=== PATIENT | female | born 1945 | race Caucasian/White ===

== ENCOUNTER 2017-06-17 09:58 | Inpatient (IN) | payer OTHER ==
[~2017-06-17] VITALS: Ht 165.1 cm; Wt 54.0 kg
[2017-06-17] MEDS ORDERED: ATOR10TA88 PO (10:11)
[2017-06-17] MEDS ORDERED: SODIUM CHLORIDE 0.9% 1000ML 1,000 ML IV ONE (10:25)
[2017-06-17] MEDS ORDERED: SODIUM CHLORIDE 0.9% 1000ML 1,000 ML IV STA (10:25)
--- NOTE | 2017-06-17 10:35 | EMERGENCY ROOM VISIT NOTE ---
History Report prepared by Sakshi: Ranjit Ho Under the Supervision of: Dr. Bertin Sears M.D. First contact with patient: 10:15 Chief Complaint: REFERRED BY DOCTOR Stated Complaint: ABNORMAL LABS History of Present Illness The patient is a 72 year old female who presents to the Emergency Room with a referral from her doctor at [facility] due to low sodium and potassium. Patient has a history of hyperlipidemia and alcohol use. She has been struggling with alcohol consumption for the past 6 months. She is being treated at [facility] for her alcohol abuse. She states she has not drank any alcohol for the past 2 weeks and that she is doing well. Patient is experiencing fatigue with intermittent shaking. She denies any nausea or vomiting. She notes that she has been keeping up with her fluids. She denies any recent steroid use and any other substance use. She denies any history of adrenal gland problems or withdrawing from alcohol in the past. Source of History: patient, transfer records Onset: Recently Position: other (Global) Symptom Intensity: low lab value Quality: other (low potassium and sodium) Timing: constant Associated Symptoms: + fatigue, No nausea, No vomiting Note: She is experiencing shakiness. Review of Systems See HPI for pertinent positives & negatives. A total of 10 systems reviewed and were otherwise negative. Past Medical & Surgical Medical Problems: (1) Hypokalemia (2) Hyponatremia Social History Problems: (1) Alcohol abuse Old medical records were reviewed. Nurse's notes were reviewed and I agree with. Family History Omitted secondary to the patient's age. Social History Smoking Status: Current Every Day Smoker Alcohol Use: other (alcoholic history) Drug Use: none Housing Status: other (rehab center) Occupation Status: retired Current/Historical Medications Scheduled Atorvastatin (Lipitor), 10 MG PO QAM Allergies Coded Allergies: No Known Allergies (Unverified , 06/17/17) Physical Exam Vital Signs Date Time Temp Pulse Resp B/P (MAP) Pulse Ox O2 Delivery O2 Flow Rate FiO2 06/17/17 11:00 79 18 170/91 97 Room Air 06/17/17 10:42 81 20 162/103 94 Room Air 06/17/17 10:26 96 Room Air 06/17/17 10:05 85 06/17/17 10:04 36.7 81 18 153/70 97 Room Air Physical Exam General: Non-ill appearing middle aged female in no acute distress. HEENT: Normal cephalic atraumatic. Pupils are equal round and reactive to light. Sclerae are anicteric. Extraocular movements are intact. Oropharynx is pink with moist mucous membranes. No swelling of the mouth lips or tongue. Neck: Supple with a midline trachea. No meningeal signs or stiffness, no JVD or bruits. No Stridor. Chest: Clear to auscultation bilaterally. No wheezes or rhonchi. No increased work of breathing. Heart: regular rate and rhythm. Abdomen: Soft nontender, nondistended without rebound guarding or rigidity. Extremities: No cyanosis clubbing or edema. No calf tenderness or assymetry Spine/Back. Non tender to palpation. No CVA tenderness Skin: Good turgor without rashes. Neurologic exam: Alert and oriented to person, place, and partial date. Cranial nerves two through 12 are intact. Motor and sensation are intact and symmetrical throughout. No tremor. Medical Decision & Procedures Laboratory Results 06/17/17 09:40 Red Blood Count 4.43, Mean Corpuscular Volume 83.1, Mean Corpuscular Hemoglobin 30.0, Mean Corpuscular Hemoglobin Concent 36.1, Mean Platelet Volume 9.3, Neutrophils (%) (Auto) 74.1, Lymphocytes (%) (Auto) 13.3, Monocytes (%) (Auto) 10.0, Eosinophils (%) (Auto) 2.1, Basophils (%) (Auto) 0.3, Neutrophils # (Auto ) 4.57, Lymphocytes # (Auto) 0.82, Monocytes # (Auto) 0.62, Eosinophils # (Auto ) 0.13, Basophils # (Auto) 0.02 06/17/17 09:40 Test 06/17/17 09:40 White Blood Count 6.17 K/uL (4.8-10.8) Red Blood Count 4.43 M/uL (4.2-5.4) Hemoglobin 13.3 g/dL (12.0-16.0) Hematocrit 36.8 % (37-47) Mean Corpuscular Volume 83.1 fL (80-100) Mean Corpuscular Hemoglobin 30.0 pg (25-34) Mean Corpuscular Hemoglobin Concent 36.1 g/dl (32-36) Platelet Count 318 K/uL (130-400) Mean Platelet Volume 9.3 fL (7.4-10.4) Neutrophils (%) (Auto) 74.1 % Lymphocytes (%) (Auto) 13.3 % Monocytes (%) (Auto) 10.0 % Eosinophils (%) (Auto) 2.1 % Basophils (%) (Auto) 0.3 % Neutrophils # (Auto) 4.57 K/uL (1.4-6.5) Lymphocytes # (Auto) 0.82 K/uL (1.2-3.4) Monocytes # (Auto) 0.62 K/uL (0.11-0.59) Eosinophils # (Auto) 0.13 K/uL (0-0.5) Basophils # (Auto) 0.02 K/uL (0-0.2) RDW Standard Deviation 38.6 fL (36.4-46.3) RDW Coefficient of Variation 12.7 % (11.5-14.5) Immature Granulocyte % (Auto) 0.2 % Immature Granulocyte # (Auto) 0.01 K/uL (0.00-0.02) Anion Gap 9.0 mmol/L (3-11) Est Creatinine Clear Calc Drug Dose 61.9 ml/min Estimated GFR () 100.1 Estimated GFR (Non- 86.4 BUN/Creatinine Ratio 13.5 (10-20) Calcium Level 8.5 mg/dl (8.5-10.1) Magnesium Level 2.2 mg/dl (1.8-2.4) Total Bilirubin 0.8 mg/dl (0.2-1) Direct Bilirubin 0.2 mg/dl (0-0.2) Aspartate Amino Transf (AST/SGOT) 24 U/L (15-37) Alanine Aminotransferase (ALT/SGPT) 28 U/L (12-78) Alkaline Phosphatase 87 U/L (45-117) Total Protein 6.5 gm/dl (6.4-8.2) Albumin 3.3 gm/dl (3.4-5.0) Lipase 175 U/L (73-393) Thyroid Stimulating Hormone (TSH) 3.170 uIu/ml (0.300-4.500) Laboratory studies as stated above per my review. Medications Administered Medications (Trade) Dose Ordered Sig/Dianelys Route Start Time Stop Time Status Last Admin Dose Admin Sodium Chloride 1,000 ml @ 999 mls/hr Q1H1M STAT IV 06/17/17 10:25 06/17/17 11:25 DC 06/17/17 10:40 999 MLS/HR Sodium Chloride 1,000 ml @ 150 mls/hr Q6H40M ONCE IV 06/17/17 10:25 06/17/17 14:18 DC 06/17/17 10:40 150 MLS/HR ECG Indication: other (abnormal labs) Rate (beats per minute): 77 Rhythm: normal sinus Findings: PAC, no acute ischemic change, other (no prolonged QT) Comparison ECG Date: no prior available ED Course 1015: Past medical records reviewed. The patient was evaluated in room B6, and a complete history and physical examination were performed. 1025: Sodium Chloride 1000 ml @ 150 mls/hr IV, Sodium Chloride 1000 ml @ 999 mls /hr IV. 1216: Upon reevaluation, the patient is resting. I discussed the results and treatment plan with the patient. She verbalized agreement of the treatment plan. The patient will be evaluated by Dr. Les Orourke Hospitalist, for further management. Medical Decision Differentials include, but are not limited to; electrolyte or metabolic abnormality, alcohol withdrawal, toxicologic process, and infection. This patient comes in as described above. She was placed in room B6. She is here for treatment and evaluation of hyponatremia. She is presently a patient at the rehabilitation facility for alcohol. She's been there for over a week. Apparently a day or so ago her sodium is 124 which was apparently down from 131. She denies any complaints. She's had no tremor. She says she has been eating okay. She is in no vomiting. IV access was established and she was hydrated with IV normal saline. Her sodium did come back at 124. Potassium is also mildly low at 0.3 she has nothing to suggest acute coronary syndrome or significant arrhythmia. She has no findings to suggest infection. I do think she needs to be admitted for hibernating hyponatremia further treatment and evaluation. Have consulted Dr. Finley to see her in the emergency department. Medication Reconcilliation Current Medication List: was personally reviewed by me Blood Pressure Screening Patient's blood pressure: Elevated blood pressure Blood pressure disposition: Elevated BP felt to be situational Consults Time Called: 1212 Consulting Physician: Dr. Les Orourke Returned Call: 1216 Discussed the patient's case. The patient will be evaluated for further management. Impression Primary Impression: Hyponatremia Additional Impression: Alcohol abuse Scribe Attestation The scribe's documentation has been prepared under my direction and personally reviewed by me in its entirety. I confirm that the note above accurately reflects all work, treatment, procedures, and medical decision making performed by me. Departure Information Dispostion Being Evaluated By Hospitalist Referrals No Doctor, Assigned (PCP) Patient Instructions My [facility] Problem Qualifiers
[2017-06-17 10:44] LABS: BASO % 0.3 %; BASO ABS # 0.02 K/uL (0-0.2); COMPLETE YES; EOS % 2.1 %; HEMATOCRIT 36.8 % (37-47); IG% 0.2 %; LYMPH % 13.3 %; LYMPH ABS # 0.82 K/uL (1.2-3.4); MEAN CELL VOLUME 83.1 fL (80-100); MEAN CORPUSCULAR HGB CONC 36.1 g/dl (32-36); MEAN PLATELET VOLUME 9.3 fL (7.4-10.4); NEUT % 74.1 %; PLATELET COUNT 318 K/uL (130-400); RED BLOOD COUNT 4.43 M/uL (4.2-5.4); WHITE BLOOD COUNT 6.17 K/uL (4.8-10.8)
[2017-06-17 11:15] LABS: BUN/CREATININE RATIO 13.5 (10-20); CALCIUM 8.5 mg/dl (8.5-10.1); CREATININE 0.69 mg/dl (0.60-1.20); MAGNESIUM 2.2 mg/dl (1.8-2.4); POTASSIUM 3.4 mmol/L (3.5-5.1); THYROID STIMULATING HORMONE 3.17 uIu/ml (0.300-4.500)
[2017-06-17] MEDS ORDERED: POTASSIUM CHLORIDE 10 MEQ TABCR PO STA (12:56)
[2017-06-17 13:00] VITALS: O2SAT 96
[2017-06-17] MEDS ORDERED: ENOXAPARIN 40 MG/0.4 ML SYR SQ SCH (13:00)
[2017-06-17] MEDS ORDERED: ONDANSETRON INJ 2 MG/ML 2 ML VIAL IV PRN (13:00)
[2017-06-17] MEDS ORDERED: THIAMINE HCL 100 MG TAB PO ONE (13:03)
[2017-06-17] MEDS ORDERED: SERTRALINE HCL 50 MG TAB PO ONE (13:03)
[2017-06-17] MEDS ORDERED: ALBUTEROL HFA 8 GM INHALER INH PRN (13:15)
[2017-06-17] MEDS ORDERED: CLONIDINE HCL 0.1 MG TAB PO PRN (13:15)
--- NOTE | 2017-06-17 13:56 | HISTORY & PHYSICAL EXAMINATION ---
DATE OF ADMISSION: 06/17/2017 PRIMARY CARE PHYSICIAN: Dr. Lama at [facility]. CHIEF COMPLAINT: The patient was sent in with increasing weakness and tiredness and also noted to have a sodium of 124. HISTORY OF PRESENT COMPLAINT: She is a 72-year-old female with significant past medical history of COPD with ongoing smoking and alcohol abuse, has been in [facility] for [facility] for the last 2 weeks. She does not have any other prior medical history. Of note, she has been complaining of more weakness and tiredness since she has been in the rehab center. She has had a blood test done yesterday by the caring physician and was noted to have a sodium of 124, potassium of 3.3. From that point, she was advised to come to [facility] for further evaluation. When asking questions besides COPD and ongoing smoking and alcohol abuse she does not have any other medical history. She is not aware of having low sodium before and she denies to have any cough, any chest pain, palpitation, shortness of breath, any confusion or any numbness or tingling in the extremities. She does not have any weakness involving any side. He denies to have any nausea and/or vomiting and no problem with urine and/or bowel habit. PAST MEDICAL HISTORY: Significant for COPD and alcohol abuse and also ongoing smoking. PAST SURGICAL HISTORY: Hysterectomy in 1975. FAMILY HISTORY: Significant that mother had some heart disease and from heart condition. SOCIAL HISTORY: She is . She has 2 children. Presently, she is in rehab center at [place] for alcohol rehabilitation. She continues to smoke about half pack per day. She has not been drinking for more than 2 weeks since she has been in the rehab center and she has been reasonably ambulant. REVIEW OF SYSTEMS: Other systems reviewed, unremarkable except those mentioned in history of present complaint. ALLERGIES: NKDA. MEDICATIONS: She has been on ibuprofen 600 mg q.i.d. as needed, Tylenol 650 mg q.i.d. as needed, Maalox 30 mL as needed, doxepin 50 mg at bedtime, triamcinolone acetonide cream 0.1% as directed, Zofran 4 mg p.o. t.i.d. as needed, folic acid 1 mg daily, vitamin B1 100 mg daily, cetirizine 10 mg p.o. b.i.d., atorvastatin 20 mg at night, multivitamin 1 tablet daily, Advair 250/50 one inhalation 1 puff b.i.d., calcium supplement, Zoloft 50 mg daily, melatonin 5 mg at night, Imodium 4 mg as directed, Phenergan as directed, clonidine 0.1 mg b.i.d. p.r.n. and Vistaril 50 mg p.o. t.i.d. p.r.n. PHYSICAL EXAMINATION: GENERAL: On examination in the Emergency Room, she was not having any acute distress. VITAL SIGNS: Temperature 36.7, pulse was 79, blood pressure 170/91, saturation 97% on room air. HEAD, EYES, EARS, NOSE, AND THROAT: Unremarkable. NECK: Supple. No JVD, no bruit. CHEST: Clear to auscultation bilaterally. HEART: S1, S2 regular. ABDOMEN: Soft, benign, nontender, no organomegaly. Bowel sounds present. EXTREMITIES: Negative for any edema. MUSCULOSKELETAL SYSTEM: Did not show any acute arthritis involving any joint. CENTRAL NERVOUS SYSTEM: She was alert, awake, oriented x3, no focal sensory and/or motor deficit appreciated. LABORATORY DATA: Noted today white count was 6.17, H&H 13.3/36.8, platelets was 1318, sodium 124, potassium 3.4, chloride 87, carbon dioxide 28, BUN 9, creatinine 0.69. LFTs unremarkable. Random glucose 104. TSH 3.10. PT, PTT pending. Chest x-ray pending. EKG was in sinus rhythm, rate of 77 per minute, normal axis and no significant ST-T wave changes. IMPRESSION AND PLAN: 1. Electrolyte imbalance, mostly with hyponatremia. The acuity of this problem is not known. We will send urine osmolarity and urine sodium level. Restrict fluid. Get chest x-ray and give a small amount of normal saline and repeat sodium at 7:00PM tonight and tomorrow morning. The causes could be secondary to alcohol abuse, SIADH and also poor intake. 2. Chronic obstructive pulmonary disease. Seems to be stable at this time. The patient has been smoking. Will advise to quit smoking and smoking cessation. 3. Alcohol abuse now at rehab. Will continue with current medications for alcoholism. 4. Gastrointestinal prophylaxis with Maalox, Mylanta as needed. 5. DVT prophylaxis with Lovenox. 6. CODE STATUS. DISCUSSED WITH THE PATIENT, SHE WILL BE A FULL CODE. In my clinical judgment, the beneficiary meets criteria as per CMS for 2 midnight stay in the hospital. VERO
[2017-06-17] MEDS ORDERED: IV FLUIDS COMPLETED PRN (14:15)
[2017-06-17] MEDS ORDERED: NSS + 20MEQ KCL 1000ML 1,000 ML IV SCH (14:19)
--- NOTE | 2017-06-17 14:40 | DIAGNOSTIC IMAGING REPORT ---
CHEST 2 VIEWS ROUTINE HISTORY: 72 years-old Female COPD . COMPARISON: None available TECHNIQUE: Frontal and lateral views of the chest FINDINGS: Cardiomediastinal and hilar silhouettes are within normal limits. Hazy right perihilar and right upper lobe opacities are noted abutting the minor fissure. There is no pneumothorax or pleural effusion. Lungs are hyperinflated with interstitial opacities of the lung bases suggesting scarring or atelectasis. The bones appear grossly intact. IMPRESSION: 1. Hazy right perihilar and right upper lobe opacities suggest atelectasis or pneumonia. 2. Hyperinflation. The above report was generated using voice recognition software. It may contain grammatical, syntax or spelling errors. Electronically signed by: Germain Catalan M.D. 06/17/2017 2:39 PM Dictated Date/Time: 06/17/2017 2:37 PM
[2017-06-17 15:00] LABS: PARTIAL THROMBOPLASTIN RATIO 1.2; PROTHROMBIN TIME (PATIENT) 10.9 SECONDS (9.0-12.0)
[2017-06-17 15:04] VITALS: BP 152/105; TEMP 36.7; Ht 165.1 cm; Wt 54.0 kg
[2017-06-17 16:00] VITALS: BP 163/90; PULSE 79; TEMP 37.3; O2SAT 96
[2017-06-17] MEDS: ENOXAPARIN 40 MG/0.4 ML SYR SQ SCH (16:12)
[2017-06-17 19:42] LABS: INR 1.1 (0.9-1.1); PARTIAL THROMBOPLASTIN RATIO 1.4; PROTHROMBIN TIME (PATIENT) 11.4 SECONDS (9.0-12.0)
[2017-06-17 20:01] LABS: BUN/CREATININE RATIO 15.5 (10-20); CALCIUM 7.6 mg/dl (8.5-10.1); CREATININE 0.41 mg/dl (0.60-1.20); MAGNESIUM 2.2 mg/dl (1.8-2.4)
[2017-06-17] MEDS: FLUTICASONE/SALMETEROL 250/50 (ADVAIR) 14 PUFF/1 INHALER INH SCH (20:16)
[2017-06-17] MEDS: CETIRIZINE HCL 10 MG TAB PO SCH (20:16)
[2017-06-18 00:37] VITALS: BP 114/66; PULSE 80; TEMP 36.9; O2SAT 94
[2017-06-18 07:05] LABS: CALCIUM 7.7 mg/dl (8.5-10.1); CREATININE 0.42 mg/dl (0.60-1.20); POTASSIUM 4.2 mmol/L (3.5-5.1)
[2017-06-18 07:19] LABS: HEMATOCRIT 32.7 % (37-47); MEAN CELL VOLUME 83.4 fL (80-100); MEAN CORPUSCULAR HEMOGLOBIN 29.3 pg (25-34); MEAN CORPUSCULAR HGB CONC 35.2 g/dl (32-36); MEAN PLATELET VOLUME 9.2 fL (7.4-10.4); PLATELET COUNT 295 K/uL (130-400); RED BLOOD COUNT 3.92 M/uL (4.2-5.4)
[2017-06-18 07:44] VITALS: BP 150/82; PULSE 73; TEMP 36.8; O2SAT 93
[2017-06-18] MEDS: SERTRALINE HCL 50 MG TAB PO SCH (08:31)
[2017-06-18] MEDS: ATORVASTATIN 10 MG TAB PO SCH (08:31)
[2017-06-18] MEDS: FLUTICASONE/SALMETEROL 250/50 (ADVAIR) 14 PUFF/1 INHALER INH SCH ×2 (08:31→20:35)
[2017-06-18] MEDS: THIAMINE HCL 100 MG TAB PO SCH (08:31)
[2017-06-18] MEDS: CETIRIZINE HCL 10 MG TAB PO SCH ×2 (08:31→20:35)
[2017-06-18] MEDS: ENOXAPARIN 40 MG/0.4 ML SYR SQ SCH (15:31)
[2017-06-18 15:37] VITALS: BP 153/76; PULSE 74; TEMP 37; O2SAT 97
--- NOTE | 2017-06-18 16:31 | Progress Note ---
Internal Med Progress Note Date of Service: Jun 18, 2017. Provider Documentation: 3 SUBJECTIVE: The patient was seen and examined No complaints OBJECTIVE: Vital Signs-as noted below Exam: General-NO distress at rest Eyes-normal ENT-normal Neck-supple Lungs-Clear to ausucltate bilaterally Heart-Regular,no murmur appreciated Abdomen-Benign,no masses,bowel sound present Extremities-No edema Neuro-AAOx3 Lab data as noted below. ASSESSMENT & PLAN: Electrolyte imbalance, mostly with hyponatremia. The acuity of this problem is not known. The causes could be secondary to alcohol abuse, SIADH and also poor intake and dehydration Urine Osmolality->400 Urine Sodium 37 Received IV NS Sodium 129 this morning Will check in AM and likely discharge tomorrow Chronic obstructive pulmonary disease. Seems to be stable at this time. The patient has been smoking. Will advise to quit smoking and smoking cessation. Alcohol abuse now at rehab. Will continue with current medications for alcoholism. Gastrointestinal prophylaxis with Maalox, Mylanta as needed. DVT prophylaxis with Lovenox. CODE STATUS. DISCUSSED WITH THE PATIENT, SHE WILL BE A FULL CODE. DISPOSITION Likely discharge tomorrow Vital Signs: Date Time Temp Pulse Resp B/P (MAP) Pulse Ox O2 Delivery O2 Flow Rate FiO2 06/18/17 15:37 37.0 74 16 153/76 (101) 97 Room Air 06/18/17 08:00 Room Air 06/18/17 07:44 36.8 73 17 150/82 (104) 93 06/18/17 00:37 36.9 80 18 114/66 (82) 94 Room Air 06/18/17 00:00 Room Air Lab Results: Results Past 24 Hours Test 06/17/17 19:00 06/17/17 19:40 06/18/17 06:15 Range/Units Prothrombin Time 11.4 9.0-12.0 SECONDS Prothromb Time International Ratio 1.1 0.9-1.1 Activated Partial Thromboplast Time 36.6 21.0-31.0 SECONDS Partial Thromboplastin Ratio 1.4 Sodium Level 126 129 136-145 mmol/L Potassium Level 4.0 4.2 3.5-5.1 mmol/L Chloride Level 94 98 98-107 mmol/L Carbon Dioxide Level 23 23 21-32 mmol/L Anion Gap 9.0 8.0 3-11 mmol/L Blood Urea Nitrogen 6 4 7-18 mg/dl Creatinine 0.41 0.42 0.60-1.20 mg/dl Est Creatinine Clear Calc Drug Dose 104.2 101.7 ml/min Estimated GFR () 118.8 117.9 Estimated GFR (Non- 102.5 101.7 BUN/Creatinine Ratio 15.5 10.0 10-20 Random Glucose 91 78 70-99 mg/dl Calcium Level 7.6 7.7 8.5-10.1 mg/dl Magnesium Level 2.2 1.8-2.4 mg/dl Urine Osmolality 401 500-800 mOms/kg Urine Random Sodium 37 mEq/L White Blood Count 4.10 4.8-10.8 K/uL Red Blood Count 3.92 4.2-5.4 M/uL Hemoglobin 11.5 12.0-16.0 g/dL Hematocrit 32.7 37-47 % Mean Corpuscular Volume 83.4 80-100 fL Mean Corpuscular Hemoglobin 29.3 25-34 pg Mean Corpuscular Hemoglobin Concent 35.2 32-36 g/dl RDW Standard Deviation 39.1 36.4-46.3 fL RDW Coefficient of Variation 12.9 11.5-14.5 % Platelet Count 295 130-400 K/uL Mean Platelet Volume 9.2 7.4-10.4 fL
[2017-06-18] MEDS: ACETAMINOPHEN 325 MG TAB PO PRN (20:36)
[2017-06-19 00:17] VITALS: BP 150/88; PULSE 66; TEMP 37; O2SAT 96
[2017-06-19 07:18] VITALS: BP 152/104; PULSE 66; TEMP 36.9; O2SAT 98
[2017-06-19] MEDS: THIAMINE HCL 100 MG TAB PO SCH (07:57)
[2017-06-19] MEDS: FLUTICASONE/SALMETEROL 250/50 (ADVAIR) 14 PUFF/1 INHALER INH SCH ×2 (07:57→20:47)
[2017-06-19] MEDS: ATORVASTATIN 10 MG TAB PO SCH (07:57)
[2017-06-19] MEDS: CETIRIZINE HCL 10 MG TAB PO SCH ×2 (07:58→20:47)
[2017-06-19] MEDS: SERTRALINE HCL 50 MG TAB PO SCH (07:58)
[2017-06-19 09:40] LABS: BLOOD UREA NITROGEN 4 mg/dl (7-18); BUN/CREATININE RATIO 6.6 (10-20); CALCIUM 8.3 mg/dl (8.5-10.1); CARBON DIOXIDE 25 mmol/L (21-32); CHLORIDE 93 mmol/L (98-107); CREATININE 0.61 mg/dl (0.60-1.20); GLUCOSE 144 mg/dl (70-99); SODIUM 125 mmol/L (136-145)
[2017-06-19 10:13] VITALS: BP 143/80; PULSE 66
[2017-06-19] MEDS: ENOXAPARIN 40 MG/0.4 ML SYR SQ SCH (16:17)
--- NOTE | 2017-06-19 16:54 | Progress Note ---
Internal Med Progress Note Date of Service: Jun 19, 2017. Provider Documentation: 3 SUBJECTIVE: The patient was seen and examined No complaints Denies any symptoms Sodium dropped down to 125 OBJECTIVE: Vital Signs-as noted below Exam: General-NO distress at rest Eyes-normal ENT-normal Neck-supple Lungs-Clear to ausucltate bilaterally Heart-Regular,no murmur appreciated Abdomen-Benign,no masses,bowel sound present Extremities-No edema Neuro-AAOx3 Lab data as noted below. ASSESSMENT & PLAN: Electrolyte imbalance, mostly with hyponatremia. The acuity of this problem is not known. The causes could be secondary to alcohol abuse, SIADH and also poor intake and dehydration Urine Osmolality->400 Urine Sodium 37 Received IV NS Sodium 129 this morning 06/18 Sodium dropped down to 125 Will Restrict fluid Recheck tomorrow Chronic obstructive pulmonary disease. Seems to be stable at this time. The patient has been smoking. Will advise to quit smoking and smoking cessation. No acute symptoms Alcohol abuse now at rehab. Will continue with current medications for alcoholism. Gastrointestinal prophylaxis with Maalox, Mylanta as needed. DVT prophylaxis with Lovenox. CODE STATUS. DISCUSSED WITH THE PATIENT, SHE WILL BE A FULL CODE. DISPOSITION Likely discharge tomorrow Vital Signs: Date Time Temp Pulse Resp B/P (MAP) Pulse Ox O2 Delivery O2 Flow Rate FiO2 06/19/17 16:25 Room Air 06/19/17 10:18 Room Air 06/19/17 10:13 66 143/80 (101) 06/19/17 07:18 36.9 66 18 152/104 (120) 98 06/19/17 00:17 37.0 66 18 150/88 (108) 96 Room Air 06/19/17 00:00 Room Air 06/18/17 19:40 Room Air Lab Results: Results Past 24 Hours Test 06/19/17 08:33 06/19/17 10:21 Range/Units Sodium Level 125 136-145 mmol/L Potassium Level 3.6 3.5-5.1 mmol/L Chloride Level 93 98-107 mmol/L Carbon Dioxide Level 25 21-32 mmol/L Anion Gap 8.0 3-11 mmol/L Blood Urea Nitrogen 4 7-18 mg/dl Creatinine 0.61 0.60-1.20 mg/dl Est Creatinine Clear Calc Drug Dose 70.0 ml/min Estimated GFR () 104.2 Estimated GFR (Non- 89.9 BUN/Creatinine Ratio 6.6 10-20 Random Glucose 144 70-99 mg/dl Calcium Level 8.3 8.5-10.1 mg/dl
[2017-06-19] MEDS: ACETAMINOPHEN 325 MG TAB PO PRN (20:48)
[2017-06-19 23:42] VITALS: BP 150/90; PULSE 69; O2SAT 96
[2017-06-20 00:04] VITALS: BP 135/89; PULSE 74; TEMP 36.4; O2SAT 96
[2017-06-20 07:14] VITALS: BP 163/89; PULSE 63; TEMP 36.4; O2SAT 95
[2017-06-20 07:16] LABS: HEMATOCRIT 33.3 % (37-47); MEAN CELL VOLUME 82.8 fL (80-100); MEAN CORPUSCULAR HEMOGLOBIN 30.3 pg (25-34); MEAN CORPUSCULAR HGB CONC 36.6 g/dl (32-36); MEAN PLATELET VOLUME 8.6 fL (7.4-10.4); PLATELET COUNT 284 K/uL (130-400); RED BLOOD COUNT 4.02 M/uL (4.2-5.4); WHITE BLOOD COUNT 3.75 K/uL (4.8-10.8)
[2017-06-20 07:57] LABS: BUN/CREATININE RATIO 10.1 (10-20); CREATININE 0.43 mg/dl (0.60-1.20); POTASSIUM 3.7 mmol/L (3.5-5.1)
[2017-06-20] MEDS: THIAMINE HCL 100 MG TAB PO SCH (08:45)
[2017-06-20] MEDS: SERTRALINE HCL 50 MG TAB PO SCH (08:45)
[2017-06-20] MEDS: FLUTICASONE/SALMETEROL 250/50 (ADVAIR) 14 PUFF/1 INHALER INH SCH ×2 (08:45→20:28)
[2017-06-20] MEDS: ATORVASTATIN 10 MG TAB PO SCH (08:45)
[2017-06-20] MEDS: CETIRIZINE HCL 10 MG TAB PO SCH ×2 (08:45→20:28)
[2017-06-20] MEDS ORDERED: FUROSEMIDE INJ 20 MG in SYRINGE 0 ML IV ONE (09:45)
[2017-06-20] MEDS ORDERED: FUROSEMIDE INJ 20 MG in SYRINGE 0 ML IV SCH (09:45)
[2017-06-20] MEDS ORDERED: SODIUM CHLORIDE 1 GM TAB PO ONE (09:45)
[2017-06-20] MEDS ORDERED: SODIUM CHLORIDE 0.9% 1000ML 1,000 ML IV ONE (09:45)
[2017-06-20 15:32] VITALS: BP 139/75; PULSE 74; TEMP 36.8; O2SAT 98
[2017-06-20 16:05] LABS: BUN/CREATININE RATIO 8.8 (10-20); CREATININE 0.49 mg/dl (0.60-1.20); POTASSIUM 3.7 mmol/L (3.5-5.1)
[2017-06-20] MEDS: ENOXAPARIN 40 MG/0.4 ML SYR SQ SCH (16:23)
[2017-06-20] MEDS: ACETAMINOPHEN 325 MG TAB PO PRN (20:31)
[2017-06-21 00:49] VITALS: BP 146/75; PULSE 70; TEMP 36.4; O2SAT 95
[2017-06-21 06:51] LABS: BUN/CREATININE RATIO 8.7 (10-20); CREATININE 0.51 mg/dl (0.60-1.20); POTASSIUM 3.5 mmol/L (3.5-5.1)
[2017-06-21 07:08] VITALS: BP 158/94; PULSE 64; TEMP 37; O2SAT 96
[2017-06-21] MEDS: THIAMINE HCL 100 MG TAB PO SCH (08:03)
[2017-06-21] MEDS: SERTRALINE HCL 50 MG TAB PO SCH (08:03)
[2017-06-21] MEDS: FLUTICASONE/SALMETEROL 250/50 (ADVAIR) 14 PUFF/1 INHALER INH SCH (08:03)
[2017-06-21] MEDS: CETIRIZINE HCL 10 MG TAB PO SCH (08:03)
[2017-06-21] MEDS: ATORVASTATIN 10 MG TAB PO SCH (08:03)
[2017-06-21] MEDS ORDERED: POTASSIUM CHLORIDE 20 MEQ TABCR PO ONE (09:07)
[2017-06-21] MEDS ORDERED: FUROSEMIDE 20 MG TAB PO ONE (09:15)
[2017-06-21] MEDS ORDERED: BOOST VANILLA PO ONE ×2 (09:30)
--- NOTE | 2017-06-21 09:47 | Nephrology Consultation ---
Nephrology Consultation Date of Consultation: Jun 21, 2017. Attending Physician: Dr Saldana Requesting Physician: Dr Saldana Reason for Consultation: hyponatremia History of Present Illness 72 year old female whom I'm asked to see for hyponatremia. PMH includes active alcohol abuse (sent here from [facility]), active tobacco abuse, copd. Denies further health issues; denies past issues w/ hyponatremia. Her presenting sodium on 06/17 was 124 with K 3.4 and otherwise unremarkable electrolytes. she had been complaining of weakness and fatigue at rehab but n/v, uncontrolled pain , confusion, ambulatory dysfunction or falls reported prior to admission. her Ayala was 37 and urine osms 401 on day of admission. she initially received 2L of NS w/ po K and then was started on standing NS w/ IV K. by 06/18 her sNa had improved steadily to 129 but then on 06/19 it fell to 125, then 124 yesterday and we were consulted in the afternoon, by which point sNa was back up to 127. yesterday she had one salt tab 1 gm, one dose of lasix 20 mg IV; she had a liter of NS as well. She has been on a fluid limit since admission 1.5L. This am her sNa is 128 w/ K 3.5. She is very anxious for d/c and states may sign out ama. SBP has been 140-160s. states she had been abstinent from etoh for 2 wks prior to admission. I note that on transfer here from [facility], she was taking prn ibuprofen and standing sertraline. Duration of these therapies prior to admission unknown. No thiazide diuretics on her list. Past Medical/Surgical History -EtOH abuse, sent here from rehab -tobacco abuse 1/2 PPD -COPD -s/p hysterectomy Family History no ckd/esrd Social History Smoking Status: Current Every Day Smoker Alcohol Use: other (alcoholic history) Drug Use: none Housing Status: other (rehab center) Occupation Status: retired Allergies Coded Allergies: Thiazide-Type Diuretics (Verified Adverse Reaction, Severe, HYPONATREMIA, 06/21/17) HYPONATREMIA- PER DR. GARRISON AVOID STARTING ANY THIAZIDE-LIKE DIURETICS- PT NOT ON PREVIOUSLY 06/21/17 Medications Current Inpatient Medications Medications (Trade) Dose Ordered Sig/Dianelys Route Start Time Stop Time Status Last Admin Dose Admin Acetaminophen (Tylenol Tab) 650 mg Q4H PRN PO 10/7/17 13:00 07/17/17 12:59 06/20/17 20:31 650 MG Ondansetron HCl (Zofran Inj) 4 mg Q6H PRN IV 06/17/17 13:00 07/17/17 12:59 Atorvastatin Calcium (Lipitor Tab) 10 mg QAM PO 06/18/17 09:00 07/18/17 08:59 06/21/17 08:03 10 MG Albuterol (Ventolin Hfa Inhaler) 2 puffs Q6H PRN INH 06/17/17 13:15 07/17/17 13:14 Folic Acid (Folvite Tab) 1 mg QAM PO 06/18/17 09:00 07/18/17 08:59 06/21/17 08:03 1 MG Thiamine HCl (Vitamin B-1 Tab) 100 mg QAM PO 06/18/17 09:00 07/18/17 08:59 06/21/17 08:03 100 MG Salmeterol Xinafoate/ Fluticasone (Advair Diskus 250/50 Inh) 1 puff BID INH 06/17/17 21:00 07/17/17 20:59 06/21/17 08:03 1 PUFF Clonidine HCl (Catapres Tab) 0.1 mg Q6H PRN PO 06/17/17 13:15 07/17/17 13:14 Cetirizine HCl (zyrTEC TAB) 10 mg BID PO 06/17/17 21:00 07/17/17 20:59 06/21/17 08:03 10 MG Sertraline HCl (Zoloft Tab) 50 mg QAM PO 06/18/17 09:00 07/18/17 08:59 06/21/17 08:03 50 MG Miscellaneous (Iv Fluids Completed) 1 ea PRN PRN N/A 06/17/17 14:15 06/17/18 14:14 Enoxaparin Sodium (Lovenox Inj) 40 mg Q24H SQ 06/17/17 16:00 07/17/17 15:59 06/20/17 16:23 40 MG Home Meds and Scripts Medications Dose Route/Sig Max Daily Dose Days Date Category Lipitor (Atorvastatin Calcium) 10 Mg Tab 10 Mg PO QAM 06/17/17 Reported Review of Systems Constitutional: No fever, No weakness, No fatigue Eyes: No worsening of vision ENT: No hearing loss Respiratory: + cough, + sputum, No wheezing, No shortness of breath, No dyspnea on exertion, No dyspnea at rest Cardiac: No chest pain, No edema, No palpitations Abdomen: No pain, No nausea, No vomiting, No diarrhea, No constipation Musculoskeletal: No joint pain, No muscle pain Female : No dysuria, No urinary frequency, No hematuria Neuro: No memory loss, No weakness, No balance problems Psych: + anxiety, + substance abuse Heme: No abnormal bleeding/bruising Endo: + fatigue Skin: No rash, No new/changing skin lesions Physical Exam Date Time Temp Pulse Resp B/P (MAP) Pulse Ox O2 Delivery O2 Flow Rate FiO2 06/21/17 07:08 37.0 64 18 158/94 (115) 96 Room Air 06/21/17 00:49 36.4 70 18 146/75 (98) 95 Room Air 06/21/17 00:30 Room Air 06/20/17 16:28 Room Air 06/20/17 15:32 36.8 74 16 139/75 (96) 98 Room Air General Appearance: WD/WN, + mild distress (d/t anxiety), + cachetic Eyes: EOMI ENT: hearing grossly normal Neck: supple Respiratory/Chest: lungs clear, no respiratory distress, + decreased breath sounds Cardiovascular: regular rate, rhythm, no edema Abdomen: normal bowel sounds, non tender, soft, + pertinent finding (no verde) Extremities: no pedal edema Neurologic/Psych: alert, oriented x 3, + pertinent finding (restless/agitated/ fixated on hosp d/c) Skin: warm/dry, no rash Diagnostics Last 24 Hours Test 06/20/17 15:05 06/20/17 21:10 06/21/17 05:42 Sodium Level 127 mmol/L 128 mmol/L Potassium Level 3.7 mmol/L 3.5 mmol/L Chloride Level 95 mmol/L 95 mmol/L Carbon Dioxide Level 25 mmol/L 24 mmol/L Anion Gap 7.0 mmol/L 9.0 mmol/L Blood Urea Nitrogen 4 mg/dl 4 mg/dl Creatinine 0.49 mg/dl 0.51 mg/dl Est Creatinine Clear Calc Drug Dose 87.2 ml/min 83.7 ml/min Estimated GFR () 112.0 110.6 Estimated GFR (Non- 96.7 95.4 BUN/Creatinine Ratio 8.8 8.7 Random Glucose 81 mg/dl 84 mg/dl Calcium Level 8.0 mg/dl 8.0 mg/dl Urine Osmolality 369 mOms/kg Urine Random Sodium 41 mEq/L Osmolality 260 mOsm/kg Diagnostic Radiology: CXR > hyperinflation, RML/RUL atelectasis v PNA Assessment & Plan 72 y/o F w/ EtOH and tobacco abuse and copd admitted 06/17 for chronic hyponatremia. asymptomatic chronic hypotonic euvolemic hyponatremia -multifactorial SIADH like picture in setting of low solute diet w/ EtOH use, structural lung disease, SSRI and possible nsaid use. serum albumin 3.3. -continue SSRI -cont fluid limit 1.5L daily -started lasix 20 mg twice daily doses at least 4-6 hrs apart -started standing po K 20 mEq daily -recommend boost daily which does not count toward fluid limit -repeat bmp win 5 days of d/c; at least daily bmp while in house -if outpt sNa 125-130 consistently, she needs outpt nephro follow up; <125 sNa low threshold for readmission HTN -asked pharmacy to list thiazides as med intolerance -trial of lasix as above -may reflect withdrawal sx/ anxiety in part Appreciate consult; will follow with you. Care coordinated w/ Dr Saldana.
--- NOTE | 2017-06-21 11:58 | Progress Note ---
Internal Med Progress Note Date of Service: Jun 21, 2017. Provider Documentation: 3 SUBJECTIVE: The patient was seen and examined No complaints Denies any symptoms Sodium up to 128 this morning Denies any symptoms and will NOT stay one more night OBJECTIVE: Vital Signs-as noted below Exam: General-NO distress at rest Eyes-normal ENT-normal Neck-supple Lungs-Clear to ausucltate bilaterally Heart-Regular,no murmur appreciated Abdomen-Benign,no masses,bowel sound present Extremities-No edema Neuro-AAOx3 Lab data as noted below. ASSESSMENT & PLAN: Electrolyte imbalance, mostly with hyponatremia. The acuity of this problem is not known. The causes could be secondary to alcohol abuse, SIADH and also poor intake and dehydration Urine Osmolality->400 Urine Sodium 37 Received IV NS on admission Sodium 129 this morning 06/18 Will Restrict fluid Recheck tomorrow-128 toady Appreciate Nephrology input Will not stay one more night Chronic obstructive pulmonary disease. Seems to be stable at this time. The patient has been smoking. Will advise to quit smoking and smoking cessation. No acute symptoms Alcohol abuse now at rehab. Will continue with current medications for alcoholism. Will discharge back to [facility] today Gastrointestinal prophylaxis with Maalox, Mylanta as needed. DVT prophylaxis with Lovenox. CODE STATUS. DISCUSSED WITH THE PATIENT, SHE WILL BE A FULL CODE. DISPOSITION Did not want to spend another day and wanted to sigh out AMA Discharged to [facility] today Vital Signs: Date Time Temp Pulse Resp B/P (MAP) Pulse Ox O2 Delivery O2 Flow Rate FiO2 06/21/17 09:00 Room Air 06/21/17 07:08 37.0 64 18 158/94 (115) 96 Room Air 06/21/17 00:49 36.4 70 18 146/75 (98) 95 Room Air 06/21/17 00:30 Room Air 06/20/17 16:28 Room Air 06/20/17 15:32 36.8 74 16 139/75 (96) 98 Room Air Lab Results: Results Past 24 Hours Test 06/20/17 15:05 06/20/17 21:10 06/21/17 05:42 Range/Units Sodium Level 127 128 136-145 mmol/L Potassium Level 3.7 3.5 3.5-5.1 mmol/L Chloride Level 95 95 98-107 mmol/L Carbon Dioxide Level 25 24 21-32 mmol/L Anion Gap 7.0 9.0 3-11 mmol/L Blood Urea Nitrogen 4 4 7-18 mg/dl Creatinine 0.49 0.51 0.60-1.20 mg/dl Est Creatinine Clear Calc Drug Dose 87.2 83.7 ml/min Estimated GFR () 112.0 110.6 Estimated GFR (Non- 96.7 95.4 BUN/Creatinine Ratio 8.8 8.7 10-20 Random Glucose 81 84 70-99 mg/dl Calcium Level 8.0 8.0 8.5-10.1 mg/dl Urine Osmolality 369 500-800 mOms/kg Urine Random Sodium 41 mEq/L Osmolality 260 280-300 mOsm/kg
[2017-06-21] MEDS ORDERED: FLV1 PO (13:46)
[2017-06-21] MEDS ORDERED: LSX20 PO (13:46)
[2017-06-21] MEDS ORDERED: ADVIN25050 INH (13:46)
[2017-06-21] MEDS ORDERED: ZYR10 PO (13:46)
[2017-06-21] MEDS ORDERED: MCRK20 PO (13:46)
[2017-06-21] MEDS ORDERED: PRVHFAIN INH (13:46)
[2017-06-21] MEDS ORDERED: THM100 PO (13:46)
[2017-06-21] MEDS ORDERED: ZLF50 PO (13:46)
--- NOTE | 2017-06-21 13:49 | Discharge Instructions ---
Discharge Instructions Date of Service Jun 21, 2017. Admission Reason for Admission: Alcohol Abuse, Hypokalemia, Hyponatremia Discharge Discharge Diagnosis / Problem: Hyponatremia ,COPD,Alcohol rehab Discharge Goals Goal(s): Prevent Disease Progression Activity Recommendations Activity Level: Up Ad Radha . 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 Current Hospital Diet Patient's current hospital diet: Regular Diet Discharge Diet Recommended Diet: Regular Diet Pending Studies Studies pending at discharge: no Medical Emergencies . Who to Call and When: Medical Emergencies: If at any time you feel your situation is an emergency, please call 911 immediately. . Non-Emergent Contact Non-Emergency issues call your: Primary Care Provider . Past History Medical & Surgical History: (1) Hypokalemia (2) Hyponatremia (3) Alcohol abuse . "Provider Documentation" section prepared by Asuncion Saldana. . Core Measure Problem Core Measures: None
[2017-06-21] MEDS ORDERED: FUROSEMIDE 20 MG TAB PO SCH (14:00)
[2017-06-21 15:13] VITALS: BP 158/94; PULSE 64; TEMP 37; O2SAT 96
[2017-06-22] MEDS ORDERED: POTASSIUM CHLORIDE 20 MEQ TABCR PO SCH (09:00)
[2017-06-22] MEDS ORDERED: BOOST VANILLA PO SCH ×2 (09:00)
== END 2017-06-21 15:32 | DRG 645 ==
LOC: C.EDB 10:00 → C.MS2W 12:55 → OBSVTOIN 12:59 → ENRESERV 13:11
PROVIDERS: ADMIT Internal Medicine; ATTEND Internal Medicine
DX: E22.2 Syndrome of inappropriate secretion of antidiuretic hormone (principal); F10.20 Alcohol dependence, uncomplicated; I10 Essential (primary) hypertension; J44.9 Chronic obstructive pulmonary disease, unspecified; F17.200 Nicotine dependence, unspecified, uncomplicated; Z79.899 Other long term (current) drug therapy